=== PATIENT | male | born 1980 | race African-American/Black ===

== ENCOUNTER 2022-04-13 14:40 | Emergency (ER) | payer MEDICAID ==
[~2022-04-13] VITALS: Ht 165.1 cm; Wt 100.0 kg
[2022-04-13 14:44] VITALS: BP 155/98
== END 2022-04-13 18:37 | disposition left against medical advice (07) ==
LOC: ER 14:40
DX: Z53.21 Procedure and treatment not carried out due to patient leaving prior to being seen by health care provider (principal)